=== PATIENT | male | born 1990 | race Hispanic/Latino ===

== ENCOUNTER 2017-12-19 13:05 | Emergency (ER) | payer SELFPAY ==
[2017-12-19] MEDS ORDERED: DEXAMETHASONE 10 MG/ML VIAL ONE (14:40)
--- NOTE | 2017-12-19 15:21 | EDPHYS ---
Physician Documentation [facility] Name: Leroy Medrano Age: 27 yrs Sex: Male : 1990 Arrival Date: 12/19/2017 Time: 13:08 Bed 9 Private MD: ED Physician Tino Horne HPI: 12/19 15:16 This 27 yrs old Male presents to ER via Ambulatory with complaints of Facial ps1 Swelling, Ear Pain. 15:16 The patient presents with drainage, a fullness, pain, in left ear. The complaints ps1 affect the left ear. Onset: The symptoms/episode began/occurred 4 day(s) ago. Modifying factors: The symptoms are alleviated by covering ear. Associated signs and symptoms: Pertinent negatives: fever, vertigo, vomiting. Severity of symptoms: At their worst the symptoms were moderate. The patient has not experienced similar symptoms in the past. The patient has not recently seen a physician. Historical: - Allergies: 13:33 NKA; lk1 - PMHx: 13:33 Asthma; lk1 - PSHx: 13:33 eye surgery as a child; lk1 - Immunization history:: Adult Immunizations up to date. - Social history:: Smoking status: Patient/guardian denies using tobacco. ROS: 15:16 Constitutional: Negative for fever, chills, and weight loss, Eyes: Negative for injury, ps1 pain, redness, and discharge, Neck: Negative for injury, pain, and swelling, Cardiovascular: Negative for chest pain, palpitations, and edema, Respiratory: Negative for shortness of breath, cough, wheezing, and pleuritic chest pain, Abdomen/GI: Negative for abdominal pain, nausea, vomiting, diarrhea, and constipation, MS/Extremity: Negative for injury and deformity, Skin: Negative for injury, rash, and discoloration, Neuro: Negative for headache, weakness, numbness, tingling, and seizure. 15:16 ENT: Positive for drainage from ear(s), ear pain. Exam: 15:16 Constitutional: This is a well developed, well nourished patient who is awake, alert, ps1 and in no acute distress. Head/Face: Normocephalic, atraumatic. Neck: Trachea midline, no thyromegaly or masses palpated, and no cervical lymphadenopathy. Supple, full range of motion without nuchal rigidity, or vertebral point tenderness. No Meningismus. Chest/axilla: Normal chest wall appearance and motion. Nontender with no deformity. No lesions are appreciated. Cardiovascular: Regular rate and rhythm. No gallops, murmurs, or rubs. Normal PMI, no JVD. No pulse deficits. Respiratory: Lungs have equal breath sounds bilaterally, clear to auscultation and percussion. No rales, rhonchi or wheezes noted. No increased work of breathing, no retractions or nasal flaring. Skin: Warm, dry with normal turgor. Normal color with no rashes, no lesions, and no evidence of cellulitis. Neuro: Awake and alert, GCS 15, oriented to person, place, time, and situation. Cranial nerves II-XII grossly intact. Sensory grossly intact. 15:16 ENT: Ear canal(s): purulent discharge, that is moderate, in the left canal, TM's: erythema, rupture, on the left, with purulent discharge, Examination of the other ear shows no obvious abnormality. Vital Signs: 13:34 BP 142 / 69; Pulse 81; Resp 16; Temp 97.7(TE); Pulse Ox 98% on R/A; Weight 111.13 kg lk1 (R); Height 5 ft. 9 in. (175.26 cm) (R); Pain 4/10; 15:36 BP 138 / 74; Pulse 84; Resp 16; Pulse Ox 97% on R/A; iw 13:34 Body Mass Index 36.18 (111.13 kg, 175.26 cm) lk1 Procedures: 15:19 Ear irrigation: Route left ear with Normal Saline amount 500ml Patient tolerated well. ps1 MDM: 14:15 Patient medically screened. ps1 15:19 Differential diagnosis: otitis media, otitis externa, ruptured TM, serotympanum. Data ps1 reviewed: vital signs, nurses notes. Response to treatment: the patient's symptoms have markedly improved after treatment. Administered Medications: 14:30 Drug: Decadron - Dexamethasone 10 mg {Note: Given PO per Dr. Horne's orders.} Route: aj1 IVP; Site: Other; Disposition: 12/19/17 15:21 Discharged to Home. Impression: Left purulent otitis media with rupture. . - Condition is Stable. - Discharge Instructions: Otitis Media With Effusion. - Prescriptions for Augmentin 875- 125 mg Oral Tablet - take 1 tablet by ORAL route every 12 hours for 10 days; 20 tablet. - Medication Reconciliation Form, Thank You Letter, Antibiotic Education, Prescription Opioid Use form. - Follow up: Private Physician; When: As needed; Reason: Recheck today's complaints, Continuance of care, Re-evaluation by your physician. Follow up: Emergency Department; When: As needed; Reason: Fever > 102 F, Worsening of condition. - Problem is new. - Symptoms are unchanged. Signatures: Mindy Christine RN RN aj1 Estefany Gonzalez RN RN iw Sarah Krause RN RN lk1 Tino Horne MD MD ps1
--- NOTE | 2017-12-19 15:21 | ER ---
Nurse's Notes [facility] Name: Leroy Medrano Age: 27 yrs Sex: Male : 1990 Arrival Date: 12/19/2017 Time: 13:08 Bed 9 Private MD: Diagnosis: Left purulent otitis media with rupture. Presentation: 12/19 13:31 Presenting complaint: Patient states: "I started with an earache about 5 days ago. Now lk1 the whole left side of my face hurts and it's swollen.". Transition of care: patient was not received from another setting of care. Onset of symptoms was December 14, 2017. Care prior to arrival: None. 13:31 Method Of Arrival: Ambulatory lk1 13:31 Acuity: STEVE 4 lk1 Triage Assessment: 13:33 General: Appears in no apparent distress. Behavior is calm, cooperative, appropriate lk1 for age. Pain: Complains of pain in face and left ear. EENT: Reports pain in left ear, left zygomatic area and left cheek. Historical: - Allergies: 13:33 NKA; lk1 - PMHx: 13:33 Asthma; lk1 - PSHx: 13:33 eye surgery as a child; lk1 - Immunization history:: Adult Immunizations up to date. - Social history:: Smoking status: Patient/guardian denies using tobacco. Screenin:50 Abuse screen: Denies threats or abuse. Denies injuries from another. Nutritional aj1 screening: No deficits noted. Tuberculosis screening: No symptoms or risk factors identified. 15:36 Fall Risk None identified. iw Assessment: 13:50 General: Appears in no apparent distress. uncomfortable, Behavior is calm, cooperative, aj1 appropriate for age. Pain: Complains of pain in left ear Pain radiates to left cheek and left zygomatic area. Neuro: Level of Consciousness is awake, alert, obeys commands, Oriented to person, place, time, situation, Speech is normal, Facial symmetry appears normal. Cardiovascular: Patient's skin is warm and dry. Respiratory: Reports cough that is persistent Airway is patent Respiratory effort is even, unlabored, Respiratory pattern is regular, symmetrical, Breath sounds are clear bilaterally. GI: No signs and/or symptoms were reported involving the gastrointestinal system. : No signs and/or symptoms were reported regarding the genitourinary system. EENT: Reports nasal congestion nasal discharge ear pain. Derm: No signs and/or symptoms reported regarding the dermatologic system. Skin is pink, warm \\T\\ dry. normal. Musculoskeletal: No signs and/or symptoms reported regarding the musculoskeletal system. Circulation, motion, and sensation intact. 15:36 Reassessment: Patient appears in no apparent distress at this time. Patient and/or iw family updated on plan of care and expected duration. Pain level reassessed. Patient is alert, oriented x 3, equal unlabored respirations, skin warm/dry/pink. Vital Signs: 13:34 BP 142 / 69; Pulse 81; Resp 16; Temp 97.7(TE); Pulse Ox 98% on R/A; Weight 111.13 kg lk1 (R); Height 5 ft. 9 in. (175.26 cm) (R); Pain 4/10; 15:36 BP 138 / 74; Pulse 84; Resp 16; Pulse Ox 97% on R/A; iw 13:34 Body Mass Index 36.18 (111.13 kg, 175.26 cm) lk1 ED Course: 13:08 Patient arrived in ED. as 13:32 Triage completed. lk1 13:36 Arm band placed on right wrist. lk1 13:47 Tino Horne MD is Attending Physician. ps1 13:50 Mindy Christine RN is Primary Nurse. aj1 13:50 Patient has correct armband on for positive identification. Bed in low position. aj1 13:50 No provider procedures requiring assistance completed. aj1 14:51 Ear irrigation: Route left ear with Other with hydrogen peroxide per Dr. Horne's aj1 orders amount 500ml Patient tolerated well. 15:36 Patient did not have IV access during this emergency room visit. iw Administered Medications: 14:30 Drug: Decadron - Dexamethasone 10 mg {Note: Given PO per Dr. Horne's orders.} Route: aj1 IVP; Site: Other; Outcome: 15:21 Discharge ordered by . ps1 15:36 Discharged to home ambulatory, with family. iw 15:36 Condition: good 15:36 Discharge instructions given to patient, family, Instructed on discharge instructions, follow up and referral plans. medication usage, Demonstrated understanding of instructions, follow-up care, medications, Prescriptions given X 1. 15:38 Patient left the ED. iw Signatures: Mindy Christine RN RN aj1 Marie Jenkins Irene, RN RN iw Jimi, Sarah, RN RN lk1 Tino Horne MD MD ps1
== END 2017-12-19 15:38 | disposition home or self-care (01) ==
LOC: ER 13:05
DX: H72.92 Unspecified perforation of tympanic membrane, left ear; H66.42 Suppurative otitis media, unspecified, left ear
CPT/HCPCS: 96374; 99283; J1100

== ENCOUNTER 2017-12-23 10:40 | Emergency (ER) | payer SELFPAY ==
--- NOTE | 2017-12-23 10:56 | EDPHYS ---
Physician Documentation [facility] Name: Leroy Medrano Age: 27 yrs Sex: Male : 1990 Arrival Date: 12/23/2017 Time: 10:43 Bed 4 Private MD: ED Physician José Antonio Titus HPI: 12/23 10:55 This 27 yrs old Male presents to ER via Ambulatory with complaints of Ear Pain.pm1 10:55 The patient presents with pain. The complaints affect the left ear. Onset: The pm1 symptoms/episode began/occurred 9 day(s) ago. Modifying factors: The symptoms are alleviated by nothing, the symptoms are aggravated by nothing. Associated signs and symptoms: Pertinent positives: left sinus congestion, Pertinent negatives: fever, tinnitus, vomiting. Severity of symptoms: in the emergency department the symptoms have improved. Patient reports that there is no more discharge from his left ear but his pain feels worse. Patient also reports left sided sinus congestion. No fevers. No headaches. Has been taking Augmentin as directed. Historical: - Allergies: 10:46 NKA; la1 - PMHx: 10:46 Asthma; la1 - Immunization history:: Adult Immunizations up to date. - Social history:: Smoking status: Patient/guardian denies using tobacco. ROS: 10:55 Constitutional: Negative for fever, chills, and weight loss, Eyes: Negative for injury, pm1 pain, redness, and discharge. 10:55 Neck: Negative for injury, pain, and swelling, Cardiovascular: Negative for chest pain, palpitations, and edema, Respiratory: Negative for shortness of breath, cough, wheezing, and pleuritic chest pain, Abdomen/GI: Negative for abdominal pain, nausea, vomiting, diarrhea, and constipation, Back: Negative for injury and pain, MS/Extremity: Negative for injury and deformity, Skin: Negative for injury, rash, and discoloration, Neuro: Negative for headache, weakness, numbness, tingling, and seizure. 10:55 ENT: Positive for ear pain, sinus congestion, sinus pain, Negative for drainage from ear(s). Exam: 10:55 Constitutional: This is a well developed, well nourished patient who is awake, alert, pm1 and in no acute distress. 10:55 Eyes: Pupils equal round and reactive to light, extra-ocular motions intact. Lids and lashes normal. Conjunctiva and sclera are non-icteric and not injected. Cornea within normal limits. Periorbital areas with no swelling, redness, or edema. 10:55 Neck: Trachea midline, no thyromegaly or masses palpated, and no cervical lymphadenopathy. Supple, full range of motion without nuchal rigidity, or vertebral point tenderness. No Meningismus. Chest/axilla: Normal chest wall appearance and motion. Nontender with no deformity. No lesions are appreciated. Cardiovascular: Regular rate and rhythm with a normal S1 and S2. No gallops, murmurs, or rubs. No pulse deficits. Respiratory: Lungs have equal breath sounds bilaterally, clear to auscultation and percussion. No rales, rhonchi or wheezes noted. No increased work of breathing, no retractions or nasal flaring. Skin: Warm, dry with normal turgor. Normal color with no rashes, no lesions, and no evidence of cellulitis. MS/ Extremity: Pulses equal, no cyanosis. Neurovascular intact. Full, normal range of motion. 10:55 Head/face: Sinus tenderness, is located over the left maxillary sinus. 10:55 ENT: External ear(s): are unremarkable, Ear canal(s): are normal, no bleeding, no purulent discharge, no swelling, TM's: rupture, is not appreciated, on the left, Examination of the other ear shows no obvious abnormality, Nose: is normal, no acute changes, nasal drainage, is not appreciated, Mouth: is normal, no acute changes, Posterior pharynx: is normal. 10:55 Neuro: Orientation: is normal, Mentation: is normal, Motor: moves all fours, Gait: is steady, at a normal pace, without difficulty. Vital Signs: 10:46 BP 150 / 110; Pulse 58; Resp 16; Temp 97.5(O); Pulse Ox 100% on R/A; Weight 108.86 kg; la1 Height 5 ft. 9 in. (175.26 cm); 10:54 BP 160 / 104; Pulse 55; Resp 16 S; Pulse Ox 98% on R/A; jl7 10:46 Body Mass Index 35.44 (108.86 kg, 175.26 cm) la1 MDM: 10:47 Patient medically screened. pm1 10:55 Data reviewed: vital signs. Data interpreted: Pulse oximetry: on room air is 100 %. pm1 Interpretation: normal. Counseling: I had a detailed discussion with the patient and/or guardian regarding: the historical points, exam findings, and any diagnostic results supporting the discharge/admit diagnosis, the need for outpatient follow up, to return to the emergency department if symptoms worsen or persist or if there are any questions or concerns that arise at home. Administered Medications: No medications were administered Disposition: 12/23/17 10:56 Discharged to Home. Impression: Otitis media, unspecified, left ear. - Condition is Stable. - Discharge Instructions: Otitis Media, Adult. - Prescriptions for Tylenol- Codeine #3 300-30 mg Oral Tablet - take 2 tablets by ORAL route every 6 hours As needed; 20 tablet. Zyrtec- D 5-120 mg Oral Tablet Sustained Release 12 hr - take 1 tablet by ORAL route every 12 hours As needed; 20 tablet. - Medication Reconciliation Form, Thank You Letter, Antibiotic Education, Prescription Opioid Use form. - Follow up: Emergency Department; When: As needed; Reason: Worsening of condition. Follow up: Private Physician; When: 2 - 3 days; Reason: Recheck today's complaints, Continuance of care, Re-evaluation by your physician. - Problem is new. - Symptoms have improved. - Notes: Continue taking the Augmentin as prescribed Addendum: 12/25/2017 07:23 Co-signature as Attending Physician, José Antonio Titus MD. g s Signatures: Jordon Gifford, RN RN la1 Ashish Anderson NP TIMBER FRAMER HELPER pm1 Brayan Mayes RN RN jl7 José Antonio Titus MD MD
--- NOTE | 2017-12-23 10:56 | ER ---
Nurse's Notes [facility] Name: Leroy Medrano Age: 27 yrs Sex: Male : 1990 Arrival Date: 12/23/2017 Time: 10:43 Bed 4 Private MD: Diagnosis: Otitis media, unspecified, left ear Presentation: 12/23 10:45 Presenting complaint: Patient states: Seen here Monday for left ear pain, given la1 augmentin, pain never got better, much worse now. Transition of care: patient was not received from another setting of care. Onset of symptoms was December 23, 2017. Care prior to arrival: None. 10:45 Method Of Arrival: Ambulatory la1 10:45 Acuity: STEVE 5 la1 Historical: - Allergies: 10:46 NKA; la1 - PMHx: 10:46 Asthma; la1 - Immunization history:: Adult Immunizations up to date. - Social history:: Smoking status: Patient/guardian denies using tobacco. Screenin:55 Abuse screen: Denies threats or abuse. Denies injuries from another. Nutritional jl7 screening: No deficits noted. Tuberculosis screening: No symptoms or risk factors identified. Fall Risk None identified. Assessment: 10:55 General: Appears in no apparent distress. uncomfortable, Behavior is calm, cooperative, jl7 appropriate for age. Pain: Complains of pain in left ear Pain does not radiate. Pain currently is 8 out of 10 on a pain scale. Quality of pain is described as aching, Pain began 5 days ago Is continuous. Neuro: Level of Consciousness is awake, alert, obeys commands, Oriented to person, place, time, situation. Cardiovascular: Patient's skin is warm and dry. Respiratory: Airway is patent Respiratory effort is even, unlabored, Respiratory pattern is regular, symmetrical. EENT: Reports pain in left ear. Derm: Skin is pink, warm \T\ dry. Vital Signs: 10:46 BP 150 / 110; Pulse 58; Resp 16; Temp 97.5(O); Pulse Ox 100% on R/A; Weight 108.86 kg; la1 Height 5 ft. 9 in. (175.26 cm); 10:54 BP 160 / 104; Pulse 55; Resp 16 S; Pulse Ox 98% on R/A; jl7 10:46 Body Mass Index 35.44 (108.86 kg, 175.26 cm) la1 ED Course: 10:43 Patient arrived in ED. mr 10:46 Triage completed. la1 10:46 Arm band placed on left wrist. la1 10:47 Ashish Anderson NP is PHCP. pm1 10:47 José Antonio Titus MD is Attending Physician. pm1 10:49 Hardik Cavanaugh, RN is Primary Nurse. ae1 10:52 Brayan Mayes RN is Primary Nurse. jl7 10:55 Bed in low position. Call light in reach. Side rails up X 1. Pulse ox on. NIBP on. jl7 11:02 No provider procedures requiring assistance completed. Patient did not have IV access jl7 during this emergency room visit. Administered Medications: No medications were administered Outcome: 10:56 Discharge ordered by . pm1 11:02 Discharged to home ambulatory. jl7 11:02 Condition: stable 11:02 Discharge instructions given to patient, Instructed on discharge instructions, follow up and referral plans. medication usage, Demonstrated understanding of instructions, follow-up care, medications, Prescriptions given X 2. 11:02 Patient left the ED. jl7 Signatures: Jeanette Ying ShabanabreonnaJordon, RN RN la1 Ashish Anderson NP TELEPHONE STATION REPAIRER pm1 Hardik Cavanaugh, ANGELA RN ae1 Brayan Mayes RN RN jl7
== END 2017-12-23 11:02 | disposition home or self-care (01) ==
LOC: ER 10:40
DX: H66.92 Otitis media, unspecified, left ear (principal)
CPT/HCPCS: 99283

== ENCOUNTER 2018-04-16 09:50 | Emergency (ER) | payer SELFPAY ==
--- NOTE | 2018-04-16 10:24 | ER ---
Nurse's Notes [facility] Name: Leroy Medrano Age: 27 yrs Sex: Male : 1990 Arrival Date: 04/16/2018 Time: 09:54 Bed 11 Private MD: None, None Diagnosis: Pain in right foot Presentation: 04/16 09:57 Presenting complaint: Patient states: Black toenail on right big toe since last hb July, right foot pain x 2 weeks. Transition of care: patient was not received from another setting of care. Onset of symptoms is unknown. Risk Assessment: Do you want to hurt yourself or someone else? Patient reports no desire to harm self or others. Initial Sepsis Screen: Does the patient meet any 2 criteria? No. Patient's initial sepsis screen is negative. Does the patient have a suspected source of infection? No. Patient's initial sepsis screen is negative. Care prior to arrival: None. 09:57 Method Of Arrival: Ambulatory hb 09:57 Acuity: STEVE 4 hb Historical: - Allergies: 10:00 NKA; hb - Home Meds: 10:00 Albuterol Nebulizer [Active]; hb - PMHx: 10:00 Asthma; hb - PSHx: 10:00 eyes - bilateral; hb - Immunization history:: Adult Immunizations up to date. - Social history:: Smoking status: Patient/guardian denies using tobacco. - Ebola Screening: : No symptoms or risks identified at this time. Screenin:45 Abuse screen: Denies threats or abuse. Denies injuries from another. Nutritional hb screening: No deficits noted. Tuberculosis screening: No symptoms or risk factors identified. Fall Risk None identified. Vital Signs: 09:58 BP 165 / 97; Pulse 86; Resp 15; Temp 97.4(TE); Pulse Ox 100% on R/A; Pain 5/10; hb ED Course: 09:54 Patient arrived in ED. sb2 09:54 None, None is Private Physician. sb2 09:58 Triage completed. hb 09:59 Arm band placed on. hb 10:09 Chayo Islas FNP-C is PHCP. snw 10:09 Gilbert Saavedra MD is Attending Physician. snw 10:45 Patient has correct armband on for positive identification. Call light in reach. hb 10:46 X-ray completed. Portable x-ray completed in exam room. Patient tolerated procedure mh1 well. 10:47 Foot Right 2 View XRAY In Process Unspecified. EDMS 11:06 Karime Doll, RN is Primary Nurse. 11:06 No provider procedures requiring assistance completed. Patient did not have IV access hb during this emergency room visit. Administered Medications: No medications were administered Outcome: 10:23 Discharge ordered by . snvanita 11:06 Discharged to home ambulatory, with family. hb 11:06 Condition: stable 11:06 Discharge instructions given to patient, Instructed on discharge instructions, follow up and referral plans. medication usage, Demonstrated understanding of instructions, follow-up care, medications, Prescriptions given X 1. 11:07 Patient left the ED. hb Signatures: Dispatcher [employer] EDIA Chayo Islas, RELOCATION MANAGER-C RELOCATION MANAGER-Csnw Phi Funkha 1 Karime Doll, RN RN Maylin Shipman 2
--- NOTE | 2018-04-16 10:24 | EDPHYS ---
Physician Documentation [facility] Name: Leroy Medrano Age: 27 yrs Sex: Male : 1990 Arrival Date: 04/16/2018 Time: 09:54 Bed 11 Private MD: None, None ED Physician Gilbert Saavedra HPI: 04/16 10:28 This 27 yrs old Male presents to ER via Ambulatory with complaints of Toe snw Infection, Foot Pain. 10:28 The patient presents with pain, that is acute. The complaints affect the right foot. snw Context: resulted from an unknown cause, Mechanism of Injury: Unknown the patient can fully bear weight, the patient is able to ambulate. Onset: The symptoms/episode began/occurred 2 week(s) ago, and became persistent. Severity of symptoms: At their worst the symptoms were very mild. It is unknown whether or not the patient has had similar symptoms in the past. It is unknown whether or not the patient has recently seen a physician. Historical: - Allergies: 10:00 NKA; hb - Home Meds: 10:00 Albuterol Nebulizer [Active]; hb - PMHx: 10:00 Asthma; hb - PSHx: 10:00 eyes - bilateral; hb - Immunization history:: Adult Immunizations up to date. - Social history:: Smoking status: Patient/guardian denies using tobacco. - Ebola Screening: : No symptoms or risks identified at this time. ROS: 10:25 Constitutional: Negative for fever, chills, and weight loss, Eyes: Negative for injury, snw pain, redness, and discharge, ENT: Negative for injury, pain, and discharge, Neck: Negative for injury, pain, and swelling, Cardiovascular: Negative for chest pain, palpitations, and edema, Respiratory: Negative for shortness of breath, cough, wheezing, and pleuritic chest pain, Abdomen/GI: Negative for abdominal pain, nausea, vomiting, diarrhea, and constipation, Back: Negative for injury and pain, : Negative for injury, bleeding, discharge, and swelling, Skin: Negative for injury, rash, and discoloration, Neuro: Negative for headache, weakness, numbness, tingling, and seizure. 10:25 MS/extremity: Positive for pain, of the right forefoot pain x 2 weeks, right great toenail with black coloration x 8-9 months. Exam: 10:25 Constitutional: This is a well developed, well nourished patient who is awake, alert, snw and in no acute distress. Head/Face: Normocephalic, atraumatic. Eyes: Pupils equal round and reactive to light, extra-ocular motions intact. Lids and lashes normal. Conjunctiva and sclera are non-icteric and not injected. Cornea within normal limits. Periorbital areas with no swelling, redness, or edema. ENT: Nares patent. No nasal discharge, no septal abnormalities noted. Tympanic membranes are normal and external auditory canals are clear. Oropharynx with no redness, swelling, or masses, exudates, or evidence of obstruction, uvula midline. Mucous membranes moist. Neck: Trachea midline, no thyromegaly or masses palpated, and no cervical lymphadenopathy. Supple, full range of motion without nuchal rigidity, or vertebral point tenderness. No Meningismus. Chest/axilla: Normal chest wall appearance and motion. Nontender with no deformity. No lesions are appreciated. Cardiovascular: Regular rate and rhythm with a normal S1 and S2. No gallops, murmurs, or rubs. Normal PMI, no JVD. No pulse deficits. Respiratory: Lungs have equal breath sounds bilaterally, clear to auscultation and percussion. No rales, rhonchi or wheezes noted. No increased work of breathing, no retractions or nasal flaring. Abdomen/GI: Soft, non-tender, with normal bowel sounds. No distension or tympany. No guarding or rebound. No evidence of tenderness throughout. Back: No spinal tenderness. No costovertebral tenderness. Full range of motion. Skin: Warm, dry with normal turgor. Normal color with no rashes, no lesions, and no evidence of cellulitis. Neuro: Awake and alert, GCS 15, oriented to person, place, time, and situation. Cranial nerves II-XII grossly intact. Motor strength 5/5 in all extremities. Sensory grossly intact. Cerebellar exam normal. Normal gait. Psych: Awake, alert, with orientation to person, place and time. Behavior, mood, and affect are within normal limits. 10:25 Musculoskeletal/extremity: Extremities: grossly normal except: noted in the right forefoot: tenderness, ROM: intact in all extremities, Circulation is intact in all extremities. Sensation intact. Nails: great toenail black in color, appears loose, pt states it has been that way for 8-9 months. Vital Signs: 09:58 BP 165 / 97; Pulse 86; Resp 15; Temp 97.4(TE); Pulse Ox 100% on R/A; Pain 5/10; hb MDM: 10:10 Patient medically screened. [facility] 10:27 Data reviewed: vital signs, nurses notes. Data interpreted: Pulse oximetry: on room air snw is 100 %. Interpretation: normal. Counseling: I had a detailed discussion with the patient and/or guardian regarding: the historical points, exam findings, and any diagnostic results supporting the discharge/admit diagnosis, the presence of at least one elevated blood pressure reading (>120/80) during this emergency department visit, radiology results, the need for outpatient follow up, to return to the emergency department if symptoms worsen or persist or if there are any questions or concerns that arise at home. Special discussion: I have referred the patient to see his PCP for further evaluation of high blood pressure. Based on the history and exam findings, there is no indication for further emergent testing or inpatient evaluation. I discussed with the patient/guardian the need to see the thoracic medicine specialist for further evaluation of the symptoms. I discussed with the patient/guardian the need to see the primary care provider for further evaluation of the symptoms. 04/16 10:22 Order name: Foot Right 2 View XRAY; Complete Time: 11:31 snw Administered Medications: No medications were administered Disposition: 15:27 Co-signature as Attending Physician, Gilbert Saavedra MD I agree with the assessment and [facility] plan of care. Disposition: 04/16/18 10:23 Discharged to Home. Impression: Pain in right foot. - Condition is Stable. - Discharge Instructions: Hypertension, Musculoskeletal Pain, Fungal Nail Infection, Cryotherapy. - Prescriptions for Diclofenac Sodium 75 mg Oral Tablet Sustained Release - take 1 tablet by ORAL route 2 times per day; 30 tablet. - Medication Reconciliation Form, Thank You Letter, Antibiotic Education, Prescription Opioid Use form. - Follow up: Private Physician; When: 1 - 2 days; Reason: Recheck today's complaints, Continuance of care, Re-evaluation by your physician. Follow up: Emergency Department; When: As needed; Reason: Worsening of condition. Signatures: Dispatcher [employer] Gilbert Mcintosh MD MD cha Therrien, Shelly, UTILITY DIVISION PROJECT MANAGER-C UTILITY DIVISION PROJECT MANAGER-Csnw Karime Doll, RN RN hb Corrections: (The following items were deleted from the chart) 11:07 10:23 04/16/2018 10:23 Discharged to Home. Impression: Pain in right foot. Condition is hb Stable. Forms are Medication Reconciliation Form, Thank You Letter, Antibiotic Education, Prescription Opioid Use. Follow up: Private Physician; When: 1 - 2 days; Reason: Recheck today's complaints, Continuance of care, Re-evaluation by your physician. Follow up: Emergency Department; When: As needed; Reason: Worsening of condition. snw
--- NOTE | 2018-04-16 11:01 | RAD REPORT ---
EXAM DESCRIPTION: RAD - Foot Right 2 View - 04/16/2018 10:47 am CLINICAL HISTORY: PAIN COMPARISON: No comparisons FINDINGS: Soft tissue swelling is noted affecting the great toe. Small calcaneal spurs are evident. No fracture, dislocation or radiographic evidence of osteomyelitis.
== END 2018-04-16 11:07 | disposition home or self-care (01) ==
LOC: ER 09:50
DX: M79.671 Pain in right foot (principal); J45.909 Unspecified asthma, uncomplicated
CPT/HCPCS: 99283

== ENCOUNTER 2019-09-23 22:40 | Emergency (ER) | payer OTHER, SELFPAY ==
[2019-09-23] MEDS ORDERED: ALBUTEROL 2.5 MG/3 ML NEB SOL ONE (23:01)
[2019-09-23] MEDS ORDERED: IPRATROPIUM BROM 0.5MG/2.5ML ONE (23:01)
[2019-09-23] MEDS ORDERED: METHYLPREDNISOLONE 125 MG INJ ONE (23:01)
[2019-09-23] MEDS ORDERED: NA CHLORIDE 0.9% 1,000 ML ONE (23:01)
[2019-09-23] MEDS ORDERED: DIPHENHYDRAMINE 50 MG/ML VIAL ONE (23:01)
[2019-09-23] MEDS ORDERED: FAMOTIDINE 20 MG/2 ML VIAL IV ONE (23:01)
--- NOTE | 2019-09-24 00:32 | EDPHYS ---
Physician Documentation [facility] Name: Leroy Medrano Age: 29 yrs Sex: Male : 1990 Arrival Date: 09/23/2019 Time: 22:44 Bed 28 Private MD: ED Physician Nikhil Santana HPI: 09/24 00:35 This 29 yrs old Male presents to ER via Ambulatory with complaints of Allergic kb Reaction. 00:35 The patient presents with itching, rash, shortness of breath, wheezing. Onset: The kb symptoms/episode began/occurred yesterday. Associated signs and symptoms: Pertinent positives: hives, rash, shortness of breath. Possible causes: antibiotics, flagyl. Severity of symptoms: At their worst the symptoms were moderate in the emergency department the symptoms are unchanged. The patient has not experienced similar symptoms in the past. The patient has been recently seen by a physician:. Pt reports he was given flagyl for an abscessed tooth that he started yesterday. States he developed a rash after taking it. Went to dentist today and was switched to a different antibiotic. Came in tonight because the rash continues and now hes starting to get short of breath and has a history of asthma. Historical: - Allergies: 09/23 23:13 METRONIDAZOLE; rv - Home Meds: 23:13 Albuterol Inhl [Active]; rv - PMHx: 23:13 Asthma; rv - PSHx: 23:13 eye surgery; rv - Immunization history:: Adult Immunizations up to date. - Social history:: Smoking status: Patient uses tobacco products, chewing tobacco. - Ebola Screening: : No symptoms or risks identified at this time. ROS: 09/24 00:34 Constitutional: Negative for fever, chills, and weight loss, ENT: Negative for injury, kb pain, and discharge, Neck: Negative for injury, pain, and swelling, Cardiovascular: Negative for chest pain, palpitations, and edema, Abdomen/GI: Negative for abdominal pain, nausea, vomiting, diarrhea, and constipation, Back: Negative for injury and pain, MS/Extremity: Negative for injury and deformity, Neuro: Negative for headache, weakness, numbness, tingling, and seizure. Respiratory: Positive for shortness of breath, wheezing. Skin: Positive for rash. Exam: 00:34 Constitutional: This is a well developed, well nourished patient who is awake, alert, kb and in no acute distress. Head/Face: Normocephalic, atraumatic. ENT: Nares patent. No nasal discharge, no septal abnormalities noted. Tympanic membranes are normal and external auditory canals are clear. Oropharynx with no redness, swelling, or masses, exudates, or evidence of obstruction, uvula midline. Mucous membranes moist. Neck: Trachea midline, no thyromegaly or masses palpated, and no cervical lymphadenopathy. Supple, full range of motion without nuchal rigidity, or vertebral point tenderness. No Meningismus. Chest/axilla: Normal chest wall appearance and motion. Nontender with no deformity. No lesions are appreciated. Cardiovascular: Regular rate and rhythm with a normal S1 and S2. No gallops, murmurs, or rubs. Normal PMI, no JVD. No pulse deficits. Abdomen/GI: Soft, non-tender, with normal bowel sounds. No distension or tympany. No guarding or rebound. No evidence of tenderness throughout. Back: No spinal tenderness. No costovertebral tenderness. Full range of motion. MS/ Extremity: Pulses equal, no cyanosis. Neurovascular intact. Full, normal range of motion. Neuro: Awake and alert, GCS 15, oriented to person, place, time, and situation. Cranial nerves II-XII grossly intact. Motor strength 5/5 in all extremities. Sensory grossly intact. Cerebellar exam normal. Normal gait. 00:34 Respiratory: the patient does not display signs of respiratory distress, Respirations: normal, Breath sounds: wheezing: expiratory that is mild. 00:34 Skin: consistent with urticaria, and is diffusely located. Vital Signs: 09/23 23:11 BP 123 / 100; Pulse 108; Resp 19; Temp 99; Pulse Ox 98% ; Weight 113.4 kg; rv 09/24 00:00 BP 145 / 63; Pulse 100; Resp 18; Pulse Ox 96% on R/A; rv 00:30 BP 140 / 75; Pulse 105; Resp 15; Pulse Ox 96% on R/A; rv MDM: 09/23 22:49 Patient medically screened. kb 09/24 00:31 Data reviewed: vital signs, nurses notes. Data interpreted: Pulse oximetry: on room air kb is 98 %. Interpretation: normal. Counseling: I had a detailed discussion with the patient and/or guardian regarding: the historical points, exam findings, and any diagnostic results supporting the discharge/admit diagnosis, the need for outpatient follow up, a family practitioner, to return to the emergency department if symptoms worsen or persist or if there are any questions or concerns that arise at home. Response to treatment: the patient's symptoms have markedly improved after treatment. 09/23 22:56 Order name: IV Start; Complete Time: 23:04 kb Administered Medications: 09/23 23:00 Drug: DuoNeb (3:1) (2.5 mg - 0.5 mg) 3 ml Route: Nebulizer; rv 09/24 00:47 Follow up: Response: No adverse reaction; Marked relief of symptoms rv 09/23 23:04 Drug: NS 0.9% 1000 ml Route: IV; Rate: 1000 ml; Site: left antecubital; rv 09/24 00:46 Follow up: IV Status: Completed infusion; IV Intake: 1000ml rv 09/23 23:04 Drug: SOLU-Medrol 125 mg Route: IVP; Site: left antecubital; rv 09/24 00:47 Follow up: Response: No adverse reaction rv 09/23 23:04 Drug: Pepcid 20 mg Route: IVP; Site: left antecubital; rv 09/24 00:47 Follow up: Response: No adverse reaction rv 09/23 23:05 Drug: Benadryl 12.5 mg Route: IVP; Site: left antecubital; rv 09/24 00:47 Follow up: Response: No adverse reaction rv Disposition: 01:27 Co-signature as Attending Physician, Nikhil Santana MD. pkl Disposition: 09/24/19 00:31 Discharged to Home. Impression: Urticaria, Allergy status to other antibiotic agents status. - Condition is Stable. - Discharge Instructions: Hives, Vxnd-[id number], Allergies, Kqpi-ac-Yera. - Prescriptions for Pepcid 20 mg Oral Tablet - take 1 tablet by ORAL route every 12 hours for 5 days; 10 tablet. Prednisone 20 mg Oral Tablet - take 1 tablet by ORAL route once daily for 5 days; 5 tablet. - Medication Reconciliation Form, Thank You Letter, Antibiotic Education, Prescription Opioid Use form. - Follow up: Emergency Department; When: As needed; Reason: Worsening of condition. Follow up: Private Physician; When: 2 - 3 days; Reason: Recheck today's complaints, Continuance of care, Re-evaluation by your physician. Signatures: Renetta June FNP-C FNP-Ckb Lam, Pin, MD MD pkDarvin Mckeon RN RN rv Corrections: (The following items were deleted from the chart) 00:48 00:31 09/24/2019 00:31 Discharged to Home. Impression: Urticaria; Allergy status to rv other antibiotic agents status. Condition is Stable. Forms are Medication Reconciliation Form, Thank You Letter, Antibiotic Education, Prescription Opioid Use. Follow up: Emergency Department; When: As needed; Reason: Worsening of condition. Follow up: Private Physician; When: 2 - 3 days; Reason: Recheck today's complaints, Continuance of care, Re-evaluation by your physician. kb
--- NOTE | 2019-09-24 00:32 | ER ---
Nurse's Notes [facility] Name: Leroy Medrano Age: 29 yrs Sex: Male : 1990 Arrival Date: 09/23/2019 Time: 22:44 Bed 28 Private MD: Diagnosis: Urticaria;Allergy status to other antibiotic agents status Presentation: 09/23 23:05 Presenting complaint: Patient states: treated for abscess with antibiotics. started rv taking it Monday, hives immediately came out. He went back to the Dentist and changed the antibiotic. now he is also having difficulty breathing. Transition of care: patient was not received from another setting of care. Onset: The symptoms/episode began/occurred gradually. Anaphylaxis evaluation, no signs or symptoms of anaphylaxis were noted. Onset of symptoms was September 23, 2019 at 19:00. Risk Assessment: Do you want to hurt yourself or someone else? Patient reports no desire to harm self or others. Initial Sepsis Screen: Does the patient meet any 2 criteria? No. Patient's initial sepsis screen is negative. Does the patient have a suspected source of infection? No. Patient's initial sepsis screen is negative. Care prior to arrival: None. 23:05 Method Of Arrival: Ambulatory rv 23:05 Acuity: STEVE 3 rv Historical: - Allergies: 23:13 METRONIDAZOLE; rv - Home Meds: 23:13 Albuterol Inhl [Active]; rv - PMHx: 23:13 Asthma; rv - PSHx: 23:13 eye surgery; rv - Immunization history:: Adult Immunizations up to date. - Social history:: Smoking status: Patient uses tobacco products, chewing tobacco. - Ebola Screening: : No symptoms or risks identified at this time. Screenin:17 Abuse screen: Denies threats or abuse. Denies injuries from another. Nutritional rv screening: No deficits noted. Tuberculosis screening: No symptoms or risk factors identified. Fall Risk None identified. Assessment: 23:16 General: Appears in no apparent distress. Behavior is calm, cooperative. Pain: Denies rv pain. Neuro: Level of Consciousness is awake, alert, obeys commands, Oriented to person, place, time, situation. Cardiovascular: Patient's skin is warm and dry. Rhythm is sinus tachycardia. Respiratory: Airway is patent Respiratory effort is unlabored, Breath sounds with wheezes bilaterally. Derm: Rash noted that is red, raised, on chest, right arm and left arm. Vital Signs: 23:11 BP 123 / 100; Pulse 108; Resp 19; Temp 99; Pulse Ox 98% ; Weight 113.4 kg; rv 09/24 00:00 BP 145 / 63; Pulse 100; Resp 18; Pulse Ox 96% on R/A; rv 00:30 BP 140 / 75; Pulse 105; Resp 15; Pulse Ox 96% on R/A; rv ED Course: 09/23 22:44 Patient arrived in ED. cf2 22:49 Ren[facility] June [facility]C [facility] kb 22:49 Nikhil Santana MD is Attending Physician. kb 23:00 Inserted saline lock: 22 gauge in right antecubital area, using aseptic technique. rv 23:11 Triage completed. rv 23:17 Patient has correct armband on for positive identification. Bed in low position. Call rv light in reach. Pulse ox on. NIBP on. 23:17 Patient placed Patient notified of wait time. rv 23:48 Darvin Nieves, ANGELA is Primary Nurse. rv 09/24 00:47 No provider procedures requiring assistance completed. IV discontinued, intact, rv bleeding controlled, No redness/swelling at site. Pressure dressing applied. Administered Medications: 09/23 23:00 Drug: DuoNeb (3:1) (2.5 mg - 0.5 mg) 3 ml Route: Nebulizer; rv 09/24 00:47 Follow up: Response: No adverse reaction; Marked relief of symptoms rv 09/23 23:04 Drug: NS 0.9% 1000 ml Route: IV; Rate: 1000 ml; Site: left antecubital; rv 09/24 00:46 Follow up: IV Status: Completed infusion; IV Intake: 1000ml rv 09/23 23:04 Drug: SOLU-Medrol 125 mg Route: IVP; Site: left antecubital; rv 09/24 00:47 Follow up: Response: No adverse reaction rv 09/23 23:04 Drug: Pepcid 20 mg Route: IVP; Site: left antecubital; rv 09/24 00:47 Follow up: Response: No adverse reaction rv 09/23 23:05 Drug: Benadryl 12.5 mg Route: IVP; Site: left antecubital; rv 09/24 00:47 Follow up: Response: No adverse reaction rv Intake: 00:46 IV: 1000ml; Total: 1000ml. rv Outcome: 00:31 Discharge ordered by . omi 00:48 Discharged to home ambulatory. rv 00:48 Condition: good 00:48 Discharge instructions given to patient, Instructed on discharge instructions, follow up and referral plans. medication usage, Demonstrated understanding of instructions, follow-up care, medications, Prescriptions given X 3. 00:48 Patient left the ED. rv Signatures: Renetta June FNP-C FNP-Ckb Vicente, Ronaldo, RN RN rv Luis Tyson cf2
[2019-09-24 02:49] VITALS: TEMP 99
[2019-09-24 02:50] VITALS: O2SAT 96
[2019-09-24 02:52] VITALS: BP 140/75
== END 2019-09-24 00:48 | disposition home or self-care (01) ==
LOC: ER 22:40
DX: L50.9 Urticaria, unspecified (principal); F17.220 Nicotine dependence, chewing tobacco, uncomplicated; J45.909 Unspecified asthma, uncomplicated; Z88.1 Allergy status to other antibiotic agents; Z88.8 Allergy status to other drugs, medicaments and biological substances
CPT/HCPCS: 96361; 94640; 96375; 96374; 99285; J1200; J7030; J2930

== ENCOUNTER 2020-12-19 23:38 | Emergency (ER) | payer OTHER ==
--- NOTE | 2020-12-20 04:23 | ER ---
Nurse's Notes [facility] Name: Leroy Medrano Age: 30 yrs Sex: Male : 1990 Arrival Date: 12/19/2020 Time: 23:45 Bed 14 Private MD: Diagnosis: Contusion, right knee;Effusion, knee;Abrasions Presentation: 12/19 23:59 Chief complaint: Patient states: he tripped while walking on and fell injuring bb his right knee. Coronavirus screen: At this time, the client does not indicate any symptoms associated with coronavirus-19. Ebola Screen: No symptoms or risks identified at this time. Initial Sepsis Screen: Does the patient meet any 2 criteria? No. Patient's initial sepsis screen is negative. Does the patient have a suspected source of infection? No. Patient's initial sepsis screen is negative. Risk Assessment: Do you want to hurt yourself or someone else? Patient reports no desire to harm self or others. Onset of symptoms was December 17, 2020. 23:59 Method Of Arrival: Ambulatory 23:59 Acuity: STEVE 4 bb Triage Assessment: 12/20 00:02 General: Appears in no apparent distress. Behavior is calm, cooperative. Pain: bb Complains of pain in right knee Pain currently is 7 out of 10 on a pain scale. Neuro: Level of Consciousness is awake, alert, obeys commands, Oriented to person, place, time, situation. Cardiovascular: No deficits noted. Respiratory: Respiratory effort is even, unlabored, Respiratory pattern is regular. GI: No signs and/or symptoms were reported involving the gastrointestinal system. Derm: Skin is pink, warm \T\ dry. abrasion to right knee lateral side. Musculoskeletal: Circulation, motion, and sensation intact. Reports pain in right knee. Historical: - Allergies: 00:02 METRONIDAZOLE; bb - Home Meds: 00:02 Albuterol Inhl [Active]; bb - PMHx: 00:02 Asthma; bb - PSHx: 00:02 strabismus; bb - Immunization history:: Adult Immunizations up to date. - Social history:: Smoking status: Patient reports use of chewing tobacco. Patient uses alcohol, but reports only rare drinking. Patient/guardian denies using street drugs. Screenin:31 Abuse screen: Denies threats or abuse. Nutritional screening: No deficits noted. bb Tuberculosis screening: No symptoms or risk factors identified. Fall Risk None identified. Assessment: 02:31 General: Appears in no apparent distress. Behavior is calm, cooperative. Pain: bb Complains of pain in right knee Pain currently is 7 out of 10 on a pain scale. Neuro: Level of Consciousness is awake, alert, obeys commands, Oriented to person, place, time, situation. Cardiovascular: No deficits noted. Respiratory: Respiratory effort is even, unlabored, Respiratory pattern is regular. GI: No deficits noted. Derm: Skin is pink, warm \T\ dry. abrasion to right knee lateral side healing. Musculoskeletal: Circulation, motion, and sensation intact. Reports pain in right knee pt able to ambulate with steady gait. 03:30 Reassessment: No changes from previously documented assessment. Patient is alert, bb oriented x 3, equal unlabored respirations, skin warm/dry/pink. awaiting diagnostic results. 04:26 Reassessment: Patient is alert, oriented x 3, equal unlabored respirations, skin bb warm/dry/pink. roderick wrap in place to right knee, pt verbalized understanding of and agrees to plan of care discharge instructions given pt ambulated with steady gait to exit. Vital Signs: 12/19 23:59 BP 168 / 93; Pulse 90; Resp 18 S; Temp 98.3(O); Pulse Ox 98% on R/A; Weight 117.93 kg bb (R); Height 5 ft. 8 in. (172.72 cm) (R); Pain 7/10; 12/20 02:33 BP 147 / 93; Pulse 80; Resp 16 S; Pulse Ox 99% on R/A; Pain 7/10; bb 04:11 BP 134 / 81; Pulse 86; Resp 16 S; Pulse Ox 100% on R/A; bb 12/19 23:59 Body Mass Index 39.53 (117.93 kg, 172.72 cm) ED Course: 12/19 23:45 Patient arrived in ED. cf2 12/20 00:01 Triage completed. bb 00:02 Arm band placed on Patient placed in waiting room, Patient notified of wait time. bb 02:31 Jama Thakur MD is Attending Physician. [facility] 02:31 Larson, Saida, RN is Primary Nurse. bb 02:31 Patient has correct armband on for positive identification. Bed in low position. Call bb light in reach. Pulse ox on. NIBP on. 02:33 No provider procedures requiring assistance completed. bb 03:09 X-ray(s) taken. sf 03:33 Knee Right 3 View XRAY In Process Unspecified. EDMS 04:22 Ashish Pruitt MD is Referral Physician. [facility] 04:27 Patient did not have IV access during this emergency room visit. bb 04:27 Roderick wrap to right knee. sf Administered Medications: No medications were administered Outcome: : Discharge ordered by . [facility] 04:27 Discharged to home ambulatory. bb 04:27 Condition: stable 04:27 Discharge instructions given to patient, Instructed on discharge instructions, follow up and referral plans. medication usage, Demonstrated understanding of instructions, follow-up care, medications, Prescriptions given X 1. 04:27 Patient left the ED. bb Signatures: Dispatcher [employer] EDMS Saida Larson RN RN Luis yTson cf2 Jama Thkaur MD MD [facility] Neftali Hernández RN RN sf Corrections: (The following items were deleted from the chart) 03:09 03:08 To radiology for Knee Right 3 View+RAD.RAD.BRZ. EDMS
--- NOTE | 2020-12-20 04:23 | EDPHYS ---
Physician Documentation [facility] Name: Leroy Medrano Age: 30 yrs Sex: Male : 1990 Arrival Date: 12/19/2020 Time: 23:45 Bed 14 Private MD: TORRES Physician Jama Thakur HPI: 12/20 03:13 This 30 yrs old Male presents to ER via Ambulatory with complaints of Knee mh7 Pain, Fall Injury. 03:13 The patient presents with an injury. The complaints affect the right knee. Context: The mh7 problem was sustained on a street or driveway, resulted from the patient tripping, pavement, the patient can fully bear weight, the patient is able to ambulate, with mild difficulty. Onset: The symptoms/episode began/occurred 3 day(s) ago. Modifying factors: The symptoms are alleviated by nothing. the symptoms are aggravated by weight bearing, bending knee. Associated signs and symptoms: Pertinent negatives calf tenderness, fever, nausea, numbness, rash, swelling, tingling, vomiting, warmth, weakness. Treatment prior to arrival includes: no previous treatment. Severity of symptoms: At their worst the symptoms were moderate, yesterday, in the emergency department the symptoms have improved, moderately. Historical: - Allergies: 00:02 METRONIDAZOLE; bb - Home Meds: 00:02 Albuterol Inhl [Active]; bb - PMHx: 00:02 Asthma; bb - PSHx: 00:02 strabismus; bb - Immunization history:: Adult Immunizations up to date. - Social history:: Smoking status: Patient reports use of chewing tobacco. Patient uses alcohol, but reports only rare drinking. Patient/guardian denies using street drugs. ROS: 03:13 Constitutional: Negative for fever, chills, and weight loss, Eyes: Negative for injury, mh7 pain, redness, and discharge, ENT: Negative for injury, pain, and discharge, Neck: Negative for injury, pain, and swelling, Cardiovascular: Negative for chest pain, palpitations, and edema, Respiratory: Negative for shortness of breath, cough, wheezing, and pleuritic chest pain, Abdomen/GI: Negative for abdominal pain, nausea, vomiting, diarrhea, and constipation, Back: Negative for injury and pain, : Negative for injury, bleeding, discharge, and swelling, Skin: Negative for injury, rash, and discoloration, Neuro: Negative for headache, weakness, numbness, tingling, and seizure, Psych: Negative for depression, anxiety, suicide ideation, homicidal ideation, and hallucinations, Allergy/Immunology: Negative for hives, rash, and allergies, Endocrine: Negative for neck swelling, polydipsia, polyuria, polyphagia, and marked weight changes, Hematologic/Lymphatic: Negative for swollen nodes, abnormal bleeding, and unusual bruising. Exam: 03:13 Constitutional: This is a well developed, well nourished patient who is awake, alert, mh7 and in no acute distress. Head/Face: Normocephalic, atraumatic. Eyes: Pupils equal round and reactive to light, extra-ocular motions intact. Lids and lashes normal. Conjunctiva and sclera are non-icteric and not injected. Cornea within normal limits. Periorbital areas with no swelling, redness, or edema. Neck: Trachea midline, no thyromegaly or masses palpated, and no cervical lymphadenopathy. Supple, full range of motion without nuchal rigidity, or vertebral point tenderness. No Meningismus. Chest/axilla: Normal chest wall appearance and motion. Nontender with no deformity. No lesions are appreciated. Cardiovascular: Regular rate and rhythm with a normal S1 and S2. No gallops, murmurs, or rubs. Normal PMI, no JVD. No pulse deficits. Respiratory: Lungs have equal breath sounds bilaterally, clear to auscultation and percussion. No rales, rhonchi or wheezes noted. No increased work of breathing, no retractions or nasal flaring. Abdomen/GI: Soft, non-tender, with normal bowel sounds. No distension or tympany. No guarding or rebound. No evidence of tenderness throughout. Back: No spinal tenderness. No costovertebral tenderness. Full range of motion. 03:13 Neuro: Awake and alert, GCS 15, oriented to person, place, time, and situation. Cranial nerves II-XII grossly intact. Motor strength 5/5 in all extremities. Sensory grossly intact. Cerebellar exam normal. Normal gait. Psych: Awake, alert, with orientation to person, place and time. Behavior, mood, and affect are within normal limits. 03:13 Musculoskeletal/extremity: Extremities: noted in the right knee: abrasion, pain, tenderness, ROM: intact in all extremities, Circulation is intact in all extremities. Pulses: are normal with no appreciated deficits, Perfusion: the patient is normally perfused throughout, Perfusion: the extremity is normally perfused throughout, Calf tenderness, is absent, Edema, is not appreciated, Sensation intact. Compartment Syndrome exam of affected extremity: is normal. no numbness, no tingling, no sensation deficit, no palor, no weak pulses, Joints: the right knee displays tenderness, Weight bearing: able to fully bear weight, without difficulty, Tendon exam: specific tendon testing normal through active and passive range of motion 03:13 Skin: injury, abrasion(s), moderate sized abrasion noted, of the right knee. Vital Signs: 12/19 23:59 BP 168 / 93; Pulse 90; Resp 18 S; Temp 98.3(O); Pulse Ox 98% on R/A; Weight 117.93 kg bb (R); Height 5 ft. 8 in. (172.72 cm) (R); Pain 7/10; 12/20 02:33 BP 147 / 93; Pulse 80; Resp 16 S; Pulse Ox 99% on R/A; Pain 7/10; bb 04:11 BP 134 / 81; Pulse 86; Resp 16 S; Pulse Ox 100% on R/A; bb 12/19 23:59 Body Mass Index 39.53 (117.93 kg, 172.72 cm) bb MDM: 04:20 Differential diagnosis: closed fracture, contusion, abrasion, tendonitis. Data [facility] reviewed: vital signs, nurses notes, radiologic studies, plain films. Data interpreted: Pulse oximetry: on room air is 100 %. Interpretation: normal. Counseling: I had a detailed discussion with the patient and/or guardian regarding: the historical points, exam findings, and any diagnostic results supporting the discharge/admit diagnosis, radiology results, the need for outpatient follow up, a orthopedic surgeon, to return to the emergency department if symptoms worsen or persist or if there are any questions or concerns that arise at home. Response to treatment: the patient's symptoms have markedly improved after treatment. Refusal of service: The patient/guardian displays adequate decision making capability and despite a detailed discussion of alternatives, benefits, risks, and consequences refuses: crutches, pain medication in the ED. 04:22 Patient medically screened. [facility] 12/20 02:42 Order name: Knee Right 3 View XRAY [facility] 12/20 04:20 Order name: Roderick Wrap; Complete Time: 04:24 [facility] Administered Medications: No medications were administered Disposition: 12/20/20 04:22 Discharged to Home. Impression: Contusion, right knee, Effusion, knee, Abrasions. - Condition is Stable. - Discharge Instructions: Contusion, Yren-rq-Pumx, Abrasion, Bgyh-pb-Ywmx, Knee Effusion, Fyrx-lu-Tpig, Knee Pain, Ogsy-ja-Cumw. - Prescriptions for Ibuprofen 800 mg Oral Tablet - take 1 tablet by ORAL route every 8 hours As needed take with food; 15 tablet. - Medication Reconciliation Form, Thank You Letter, Antibiotic Education, Prescription Opioid Use form. - Follow up: Private Physician; When: 1 - 2 days; Reason: Worsening of condition, Recheck today's complaints, Continuance of care, Re-evaluation by your physician. Follow up: Ashish Pruitt MD; When: 2 - 3 days; Reason: Worsening of condition, Recheck today's complaints. - Problem is new. - Symptoms have improved. Signatures: Dispatcher [employer] [facility] Saida Larson RN RN bb Jama Thakur MD MD [facility] Corrections: (The following items were deleted from the chart) 03:09 02:42 Knee Right 3 View+RAD.RAD.BRZ ordered. [facility] 04:24 04:22 12/20/2020 04:22 Discharged to Home. Impression: Contusion, right knee. Condition [facility] is Stable. Forms are Medication Reconciliation Form, Thank You Letter, Antibiotic Education, Prescription Opioid Use. Follow up: Private Physician; When: 1 - 2 days; Reason: Worsening of condition, Recheck today's complaints, Continuance of care, Re-evaluation by your physician. Follow up: Dr. Ashish Pruitt; When: 2 - 3 days; Reason: Worsening of condition, Recheck today's complaints. Problem is new. Symptoms have improved. [facility] 04:27 04:24 12/20/2020 04:22 Discharged to Home. Impression: Contusion, right knee; Effusion, bb knee; Abrasions. Condition is Stable. Discharge Instructions: Contusion, Gnus-yx-Sdxa, Knee Effusion, Cjpj-qj-Wzfe, Knee Pain, Qzwh-da-Kxzb. Prescriptions for Ibuprofen 800 mg Oral Tablet - take 1 tablet by ORAL route every 8 hours As needed take with food; 15 tablet. and Forms are Medication Reconciliation Form, Thank You Letter, Antibiotic Education, Prescription Opioid Use. Follow up: Private Physician; When: 1 - 2 days; Reason: Worsening of condition, Recheck today's complaints, Continuance of care, Re-evaluation by your physician. Follow up: Dr. Ashish Pruitt; When: 2 - 3 days; Reason: Worsening of condition, Recheck today's complaints. Problem is new. Symptoms have improved. mh7
[2020-12-20 07:44] VITALS: TEMP 98.3
[2020-12-20 07:47] VITALS: BP 134/81; O2SAT 100
--- NOTE | 2020-12-21 12:24 | RAD REPORT ---
EXAM DESCRIPTION: RAD - Knee Right 3 View - 12/20/2020 3:33 am CLINICAL HISTORY: The patient is 30 years old and is Male; trauma TECHNIQUE: Three views of the right knee. COMPARISON: No relevant prior studies available. FINDINGS: Bones/joints: No acute fracture or dislocation. There may be a small suprapatellar joint effusion. Soft tissues: Unremarkable. IMPRESSION: 1. No acute fracture or dislocation. 2. There may be a small suprapatellar joint effusion. Electronically signed by: Andrew Chapman MD 12/20/2020 4:10 AM CDT Due to temporary technical issues with the PACS/Fluency reporting system, reports are being signed by the in house radiologist without review as a courtesy to ensure prompt reporting. The interpreting r adiologist is fully responsible for the content of the report.
== END 2020-12-20 04:27 | disposition home or self-care (01) ==
LOC: ER 23:38
DX: M25.461 Effusion, right knee (principal); S80.211A Abrasion, right knee, initial encounter; W01.0XXA Fall on same level from slipping, tripping and stumbling without subsequent striking against object, initial encounter; Y93.01 Activity, walking, marching and hiking; Y92.89 Other specified places as the place of occurrence of the external cause; Z88.8 Allergy status to other drugs, medicaments and biological substances; F17.220 Nicotine dependence, chewing tobacco, uncomplicated
CPT/HCPCS: 99284